=== PATIENT | female | born 1985 | race Caucasian/White ===

== ENCOUNTER 2021-12-08 00:27 | Emergency (ER) | payer BC, SELFPAY ==
[2021-12-08 00:32] VITALS: BP 132/66; PULSE 94; O2SAT 100
[2021-12-08 00:45] VITALS: BMI 27.4
[2021-12-08 00:49] VITALS: BP 132/66; PULSE 87; RESP 18; TEMP 36.7; O2SAT 98; BMI 28.3
[2021-12-08 00:54] LABS: Basophils # 0.1 K/mm3 (0-0.2); Eosinophils # 0.1 K/mm3 (0.0-0.4); Eosinophils % 0.9 % (0.1-12.0); Hematocrit 41.9 % (37.0-47.0); Hemoglobin 13.8 g/dL (12.2-16.2); Lymphocytes # 2.2 K/mm3 (0.7-4.5); Lymphocytes % 15.5 % (10-50); Mean Corpuscular HGB Conc 33.1 g/dL (31.8-35.4); Mean Corpuscular Hemoglobin 28.9 pg (27.0-31.2); Mean Corpuscular Volume 87.6 fl (81-99); Mean Platelet Volume 8.6 fl (7.4-10.4); Monocytes # 0.4 K/mm3 (0.1-1.0); Monocytes % 2.6 % (1.7-9.3); Neutrophils # 11.5 K/mm3 (1.8-7.8); Neutrophils % 80.1 % (37.0-80.0); Platelet Count 347 K/mm3 (142-424); Red Blood Count 4.78 M/mm3 (4.20-5.40); Red Cell Distribution Width 14.7 % (11.5-17.5); White Blood Count 14.4 K/mm3 (4.8-10.8)
[2021-12-08 00:56] LABS: Microscopic, Urine URINE MICROSCOPIC (MICROSCOPIC)
[2021-12-08 01:01] LABS: Alanine Aminotransferase 69 U/L (12-78); Albumin Level 4.5 g/dl (3.5-5.0); Albumin/Globulin Ratio 1.5 (1.1-1.8); Alkaline Phosphatase 136 U/L (38-126); Anion Gap 14.6 mEq/L (5-15); Aspartate Amino Transferase 40 U/L (14-36); Bilirubin,Total 0.5 mg/dl (0.2-1.3); Blood Urea Nitrogen 9 mg/dl (7-17); Carbon Dioxide 20 mmol/L (22.0-30.0); Chloride 107 mmol/L (98-107); Creatinine Clearance Estimated 150 mL/min (50-200); Estimated Glomerular Filt Rate 114 ml/min (>60); GFR (African American) 138 ML/MIN (>60); Glucose 112 mg/dl (74-100); Potassium 3.6 mmoL/L (3.5-5.1); Sodium 138 mmol/L (136-145); Total Protein,Serum 7.5 g/dl (6.3-8.2)
[2021-12-08 01:05] LABS: Appearance,Urine CLEAR (Clear); Bilirubin,Urine Negative (Negative); Blood, Urine TRACE-L (Negative); C-Reactive Protein 9.4 mg/L (0-4); Color,Urine YELLOW (Yellow); Glucose,Urine (UA) Negative (Negative); Ketones,Urine Negative (Negative); Leukocyte Esterase,Urine TRACE (Negative); Nitrate,Urine Negative (Negative); Protein,Urine Negative (Negative); Specific Gravity, Urine >= 1.030 (1.005-1.030); Urobilinogen,Urine 0.2 EU/dl (0.2)
--- NOTE | 2021-12-08 01:07 | CT_ITS ---
PROCEDURE INFORMATION: Exam: CT Abdomen And Pelvis Without Contrast Exam date and time: 12/08/2021 1:17 AM Age: 36 years old Clinical indication: Pain; Other: Lower back; Additional info: Lower back pain TECHNIQUE: Imaging protocol: Computed tomography of the abdomen and pelvis without contrast. Radiation optimization: All CT scans at this facility use at least one of these dose optimization techniques: automated exposure control; mA and/or kV adjustment per patient size (includes targeted exams where dose is matched to clinical indication); or iterative reconstruction. COMPARISON: No relevant prior studies available. FINDINGS: Liver: Normal. No mass. Gallbladder and bile ducts: Multiple cholesterol gallstones present without inflammatory changes of the gallbladder. Pancreas: Normal. No ductal dilation. Spleen: Normal. No splenomegaly. Adrenal glands: Normal. No mass. Kidneys and ureters: Normal. No hydronephrosis. Stomach and bowel: Unremarkable. No obstruction. No mucosal thickening. Appendix: No evidence of appendicitis. Intraperitoneal space: Unremarkable. No free air. No significant fluid collection. Vasculature: Unremarkable. No abdominal aortic aneurysm. Lymph nodes: Right lower quadrant multiple mesenteric nodes measuring greater than 5 mm in short axis are present, which can be seen with mesenteric adenitis. Urinary bladder: Unremarkable as visualized. Reproductive: Unremarkable as visualized. Bones/joints: Multiple uniform ovoid sclerotic foci throughout the pelvis proximal femurs, and axillary spine compatible with osteopoikilosis. Soft tissues: Normal. IMPRESSION: Right lower quadrant multiple mesenteric nodes measuring greater than 5 mm in short axis are present, which can be seen with mesenteric adenitis.
[2021-12-08 01:08] LABS: WBC,Urine 20-50 #/hpf (0-3)
[2021-12-08 01:13] LABS: HCG Qualitative, Serum Negative (Negative)
--- NOTE | 2021-12-08 01:18 | [facility].EDBACK ---
ED Disposition Clinical Impression: Lumbar pain UTI (urinary tract infection) Qualifiers: Urinary tract infection type: site unspecified Hematuria presence: without hematuria Qualified Code(s): N39.0 - Urinary tract infection, site not specified Disposition: Home, Self-Care Condition on Discharge: Good Instructions: DI for Low Back Pain Additional Instructions: use meds and see pcp and check on urine c/s Prescriptions: levoFLOXacin [Levaquin 500mg tab] 500 mg PO DAILY #7 tab Transmission Status: Pending to [id number] Referrals: Magdy Farias MD [Primary Care Provider] - - Critical Care Critical Care Time: No Attestation: On 12/08/21, the high probability of a clinically significant, sudden or life threatening deterioration of the following system(s) required my full and direct attention, intervention and personal management. The time I documented below is in addition to time spent performing reported procedures but includes the following listed in this critical care notation. Medical Decision Making - Medical Records Medical records reviewed: Yes: I reviewed the patient's medical records. - Yasmany Inquiry Pt receiving controlled substance: No Vital Signs: 12/08/21 00:32 12/08/21 00:49 Temperature 98.0 F Temperature Source Oral Pulse Rate 94 H Pulse Rate [Apical] 87 Respiratory Rate 18 Blood Pressure 132/66 Blood Pressure [Right Arm] 132/66 Blood Pressure Mean [Right Arm] 88 Blood Pressure Source [Right Arm] Automatic Cuff Blood Pressure Position [Right Arm] Sitting 02 Sat by Pulse Oximetry 100 98 Oxygen Delivery Method Room Air Room Air - Lab Data Lab results reviewed: Yes: I reviewed the patient's lab results. Lab Results 12/08/21 00:50: ESR 28 H 12/08/21 00:50: C-Reactive Protein 9.4 H, Procalcitonin 0.079 12/08/21 00:50: Urine Color Yellow, Urine Appearance Clear, Urine pH 6.0, Ur Specific [place] >= 1.030, Urine Protein Negative, Urine Glucose (UA) Negative, Urine Ketones Negative, Urine Blood Trace-l, Urine Nitrate Negative, Urine Bilirubin Negative, Urine Urobilinogen 0.2, Ur Leukocyte Esterase Trace, Urine RBC 3-5, Urine WBC 20-50, Ur Squamous Epith Cells 10-20 12/08/21 00:50: WBC 14.4 H, RBC 4.78, Hgb 13.8, Hct 41.9, MCV 87.6, MCH 28.9, MCHC 33.1, RDW 14.7, Plt Count 347, MPV 8.6, Neut % (Auto) 80.1 H, Lymph % (Auto) 15.5, [place] % (Auto) 2.6, Eos % (Auto) 0.9, Baso % (Auto) 1.0, Neut # (Auto) 11.5 H, Lymph # (Auto) 2.2, [place] # (Auto) 0.4, Eos # (Auto) 0.1, Baso # (Auto) 0.1 12/08/21 00:50: Sodium 138, Potassium 3.6, Chloride 107, Carbon Dioxide 20 L, Anion Gap 14.6, BUN 9, Creatinine 0.60, Estimated Creat Clear 150, Estimated GFR 114, Est GFR ( Amer) 138, Glucose 112 H, Calcium 9.0, Total Bilirubin 0.5, AST 40 H, ALT 69, Alkaline Phosphatase 136 H, Total Protein 7.5, Albumin 4.5, Globulin 3.0, Albumin/Globulin Ratio 1.5 12/08/21 00:50: Serum HCG, Qual Negative Result diagrams: 12/08/21 00:50 12/08/21 00:50 Orders (Tests/Meds): ED MEDICATIONS Generic Name Dose Route Start Last Admin Trade Name Freq PRN Reason Stop Dose Admin Sodium Chloride 1,000 mls @ 999 mls/hr 12/08/21 01:00 12/08/21 00:50 Sod Chlor 0.9% 1000ml Bag IV 12/08/21 02:00 999 mls/hr .Q1H1M KAROLYN Administration Sodium Chloride 1,000 mls @ 999 mls/hr 12/08/21 02:45 12/08/21 02:45 Sod Chlor 0.9% 1000ml Bag IV 12/08/21 03:45 999 mls/hr .Q1H1M KAROLYN Administration Discontinued Medications Generic Name Dose Route Start Last Admin Trade Name Freq PRN Reason Stop Dose Admin Ketorolac Tromethamine 30 mg 12/08/21 00:48 12/08/21 01:03 Ketorolac 30mg/Ml Vial IV 12/08/21 00:49 30 mg ONCE ONE Administration Ondansetron HCl 4 mg 12/08/21 00:48 12/08/21 01:03 Ondansetron 4mg/2ml Vial IV 12/08/21 00:49 4 mg ONCE ONE Administration ORDERS Category Date Time Status Urine Culture Stat Micro 12/08/21 00:50 Received - CT Data CT Scan: [place]
[2021-12-08 01:19] LABS: Procalcitonin 0.079 ng/mL (0.0-2.0)
[2021-12-08 01:22] LABS: Erythrocyte Sedimentation Rate 28 mm/hr (0-20)
[2021-12-08 04:04] VITALS: BP 124/75; PULSE 82; RESP 18; TEMP 36.7; O2SAT 98
== END 2021-12-08 04:08 | disposition home or self-care (01) ==
PROVIDERS: Emergency Provider Emergency Medicine; PCP Family Medicine
DX: M54.50 Low back pain, unspecified (principal); N39.0 Urinary tract infection, site not specified
CPT/HCPCS: 74176; 80053; 81001; 84145; 84703; 85025; 85651; 86140; 87086; 87088; 87186; 96365; 96375; 99284; J2405